=== PATIENT | female | born 1985 | race African-American/Black ===

== ENCOUNTER 2019-03-27 12:36 | Emergency (ER) | payer MEDICAID ==
[~2019-03-27] VITALS: Ht 160 cm; Wt 91.0 kg
[~2019-03-27 12:36] MED LIST: ALBU6.7H11 IH
[2019-03-27 13:44] VITALS: BP 100/60
[2019-03-27] MEDS ORDERED: HYDROCODONE/ACETAMINOPHEN 5/325MG TABLET PO ONE (15:00)
[2019-03-27] MEDS ORDERED: ONDANSETRON 4MG ODT PO ONE (15:00)
[2019-03-27] MEDS ORDERED: DIAZEPAM 5 MG TABLET PO ONE (15:00)
== END 2019-03-27 16:29 | disposition home or self-care (01) ==
LOC: ER 12:45
DX: M62.830 Muscle spasm of back (principal); V49.40XA Driver injured in collision with unspecified motor vehicles in traffic accident, initial encounter; Y93.89 Activity, other specified; Y92.410 Unspecified street and highway as the place of occurrence of the external cause; M54.42 Lumbago with sciatica, left side; M54.41 Lumbago with sciatica, right side; R03.0 Elevated blood-pressure reading, without diagnosis of hypertension
CPT/HCPCS: 72070; 72100; 81025; 99284; Q0162